=== PATIENT | female | born 1950 | race Caucasian/White ===

== ENCOUNTER 2017-02-27 08:59 | Emergency (ER) | payer MEDICARE, OTHER ==
[~2017-02-27] VITALS: Ht 157.5 cm; Wt 66.8 kg
[2017-02-27 09:40] VITALS: BP 136/76
[2017-02-27 09:47] LABS: BASOPHIL % 1.1 % (0-2); PLATELET COUNT 257 x10^3mcL (130-400)
[2017-02-27 09:59] LABS: CARBON DIOXIDE 22.5 mmol/L (21-32); POTASSIUM SERUM 3.1 mmol/L (3.5-5.1)
[2017-02-27 10:01] LABS: RED CELL DISTRIBUTION WIDTH 14.8 % (11.5-14.5)
[2017-02-27 10:04] LABS: ALBUMIN 3.6 g/dL (3.4-5.0); BILIRUBIN TOTAL 0.84 mg/dL (0.20-1.00); MAGNESIUM 1.9 mg/dL (1.8-2.4); PHOSPHOROUS 2.8 mg/dL (2.5-4.9); TOTAL PROTEIN, SERUM 7.7 g/dL (6.4-8.2)
== END 2017-02-27 09:41 | disposition short-term general hospital (02) ==
LOC: ED 08:59
PROVIDERS: Specialist
DX: I21.19 ST elevation (STEMI) myocardial infarction involving other coronary artery of inferior wall (principal); R11.10 Vomiting, unspecified
CPT/HCPCS: 83880; J1644; J2270; J2405; Q0092